=== PATIENT | female | born 1935 | race African-American/Black ===

== ENCOUNTER 2018-08-03 10:39 | Emergency (ER) | payer OTHER ==
--- NOTE | 2018-08-03 12:46 | RAD REPORT ---
EXAM DESCRIPTION: [facility] 12:37 pm CLINICAL HISTORY: left leg pain and swelling. COMPARISON: None. FINDINGS: A Holland cyst is not seen Left common femoral, superficial femoral, popliteal and posterior tibial veins are compressible and demonstrate augmentation. Doppler demonstrates good flow. IMPRESSION: No evidence of deep venous thrombosis involving the left lower extremity.
--- NOTE | 2018-08-03 12:48 | EDPHYS ---
Physician Documentation [facility] Name: Alisa Pollock Age: 83 yrs Sex: Female : 1935 Arrival Date: 08/03/2018 Time: 10:42 Bed 4 Private MD: Ke Stratton F ED Physician Fracisco Tillman HPI: 08/03 11:44 This 83 yrs old Black Female presents to ER via Ambulatory with complaints of Leg rn Swelling. 11:44 The patient presents with pain. The complaints affect the posterior aspect of left rn knee. Onset: The symptoms/episode began/occurred yesterday. Modifying factors: The symptoms are alleviated by remaining still, the symptoms are aggravated by bending knee. Severity of symptoms: At their worst the symptoms were mild, in the emergency department the symptoms are unchanged. The patient has not experienced similar symptoms in the past. Reports pain behind left knee, began yesterday, no trauma, reports felt back of knee and felt swollen, no fever, no rash, no swelling of rest of legs. NO hx of dvt, no recent surgery, no long trips, no immobilization.. Historical: - Allergies: 10:57 Lisinopril; iw - Home Meds: 10:57 pravastatin 40 mg oral tab 2 tabs once daily [Active]; aspirin 81 mg Oral TbEC 1 tab iw once daily [Active]; amlodipine 10 mg tab 1 tab once daily [Active]; - PMHx: 10:57 High Cholesterol; Hypertension; iw - PSHx: 10:57 Tubal ligation; iw - Immunization history:: Adult Immunizations up to date. - Ebola Screening: : Patient negative for fever greater than or equal to 101.5 degrees Fahrenheit, and additional compatible Ebola Virus Disease symptoms Patient denies exposure to infectious person Patient denies travel to an Ebola-affected area in the 21 days before illness onset No symptoms or risks identified at this time. - Social history:: Smoking status: Patient/guardian denies using tobacco, Patient/guardian denies using alcohol. - Family history:: not pertinent. - Hospitalizations: : No recent hospitalization is reported. ROS: 11:44 Constitutional: Negative for fever, chills, and weight loss, Eyes: Negative for injury, rn pain, redness, and discharge, Neck: Negative for injury, pain, and swelling, Cardiovascular: Negative for chest pain, palpitations, and edema, Respiratory: Negative for shortness of breath, cough, wheezing, and pleuritic chest pain, Abdomen/GI: Negative for abdominal pain, nausea, vomiting, diarrhea, and constipation, MS/Extremity: + left leg pain and subjective swelling Skin: Negative for injury, rash, and discoloration, Neuro: Negative for headache, weakness, numbness, tingling, and seizure. Exam: 11:44 Constitutional: This is a well developed, well nourished patient who is awake, alert, rn and in no acute distress. Head/Face: Normocephalic, atraumatic. Eyes: Pupils equal round and reactive to light, extra-ocular motions intact. Lids and lashes normal. Conjunctiva and sclera are non-icteric and not injected. Cornea within normal limits. Periorbital areas with no swelling, redness, or edema. ENT: MMM Respiratory: No increased work of breathing, no retractions or nasal flaring. Skin: Warm, dry with normal turgor. Normal color with no rashes, no lesions, and no evidence of cellulitis. MS/ Extremity: Pulses equal, no cyanosis. Neurovascular intact. Full, normal range of motion. Equal circumference. Neuro: Awake and alert, GCS 15, oriented to person, place, time, and situation. Cranial nerves II-XII grossly intact. Motor strength 5/5 in all extremities. Sensory grossly intact. Cerebellar exam normal. Vital Signs: 10:57 BP 119 / 87; Pulse 90; Resp 16; Temp 98.3; Pulse Ox 100% on R/A; iw 12:10 BP 121 / 74; Pulse 83; Resp 18; Pulse Ox 100% on R/A; hj 12:50 BP 122 / 70; Pulse 82; Resp 18; Pulse Ox 100% on R/A; hj MDM: 10:48 Patient medically screened. rn 12:44 Differential diagnosis: tendonitis, bursitis, DVT, arthritis. Data reviewed: vital rn signs, nurses notes, radiologic studies, doppler, and as a result, I will discharge patient. Counseling: I had a detailed discussion with the patient and/or guardian regarding: the historical points, exam findings, and any diagnostic results supporting the discharge/admit diagnosis, radiology results, the need for outpatient follow up, to return to the emergency department if symptoms worsen or persist or if there are any questions or concerns that arise at home. Special discussion: I discussed with the patient/guardian in detail that at this point there is no indication for admission to the hospital. It is understood, however, that if the symptoms persist or worsen the patient needs to return immediately for re-evaluation. ED course: U/S report negative for DVT, neg for fluid collection or mass. 08/03 11:05 Order name: Extremity [facility] US; Complete Time: 12:48 rn Administered Medications: No medications were administered Disposition: 08/03/18 12:48 Discharged to Home. Impression: Pain in left leg, Osteoarthritis, unspecified site. - Condition is Stable. - Discharge Instructions: Arthritis, Bursitis, Musculoskeletal Pain, Pain Without a Known Cause. - Medication Reconciliation Form, Thank You Letter, Antibiotic Education, Prescription Opioid Use form. - Follow up: Private Physician; When: As needed; Reason: Recheck today's complaints, Re-evaluation by your physician. - Problem is new. - Symptoms have improved. Signatures: Dispatcher [employer] EDIL Sarah Schwartz RN RN iw Nieto, Roman, MD MD rn Joaquin, Henry, RN RN hj Corrections: (The following items were deleted from the chart) 13:00 12:48 08/03/2018 12:48 Discharged to Home. Impression: Pain in left leg; hj Osteoarthritis, unspecified site. Condition is Stable. Forms are Medication Reconciliation Form, Thank You Letter, Antibiotic Education, Prescription Opioid Use. Follow up: Private Physician; When: As needed; Reason: Recheck today's complaints, Re-evaluation by your physician. Problem is new. Symptoms have improved. rn
--- NOTE | 2018-08-03 12:48 | ER ---
Nurse's Notes [facility] Name: Alisa Pollock Age: 83 yrs Sex: Female : 1935 Arrival Date: 08/03/2018 Time: 10:42 Bed 4 Private MD: Ke Stratton F Diagnosis: Pain in left leg;Osteoarthritis, unspecified site Presentation: 08/03 10:54 Presenting complaint: Patient states: feels like her left leg is swollen, also reports iw mild pain to left calf when bending leg this morning. Transition of care: patient was not received from another setting of care. Onset of symptoms was July 2018. Risk Assessment: Do you want to hurt yourself or someone else? Patient reports no desire to harm self or others. Initial Sepsis Screen: Does the patient meet any 2 criteria? No. Patient's initial sepsis screen is negative. Does the patient have a suspected source of infection? No. Patient's initial sepsis screen is negative. Care prior to arrival: None. 10:54 Method Of Arrival: Ambulatory iw 10:54 Acuity: BULL 3 iw Triage Assessment: 11:00 General: Appears in no apparent distress. uncomfortable, Behavior is calm, cooperative, hj appropriate for age. Pain: Complains of pain in left leg. Historical: - Allergies: 10:57 Lisinopril; iw - Home Meds: 10:57 pravastatin 40 mg oral tab 2 tabs once daily [Active]; aspirin 81 mg Oral TbEC 1 tab iw once daily [Active]; amlodipine 10 mg tab 1 tab once daily [Active]; - PMHx: 10:57 High Cholesterol; Hypertension; iw - PSHx: 10:57 Tubal ligation; iw - Immunization history:: Adult Immunizations up to date. - Ebola Screening: : Patient negative for fever greater than or equal to 101.5 degrees Fahrenheit, and additional compatible Ebola Virus Disease symptoms Patient denies exposure to infectious person Patient denies travel to an Ebola-affected area in the 21 days before illness onset No symptoms or risks identified at this time. - Social history:: Smoking status: Patient/guardian denies using tobacco, Patient/guardian denies using alcohol. - Family history:: not pertinent. - Hospitalizations: : No recent hospitalization is reported. Screenin:00 Abuse screen: Denies threats or abuse. Denies injuries from another. Nutritional hj screening: No deficits noted. Tuberculosis screening: No symptoms or risk factors identified. Fall Risk None identified. Assessment: 10:57 General: Appears in no apparent distress. uncomfortable, Behavior is calm, cooperative, hj appropriate for age. Pain: Complains of pain in left leg. Neuro: Level of Consciousness is awake, alert, obeys commands, Oriented to person, place, time, situation, Appropriate for age. Cardiovascular: Capillary refill < 3 seconds Patient's skin is warm and dry. Respiratory: Airway is patent Respiratory effort is even, unlabored, Respiratory pattern is regular, symmetrical. GI: No signs and/or symptoms were reported involving the gastrointestinal system. : No signs and/or symptoms were reported regarding the genitourinary system. EENT: No signs and/or symptoms were reported regarding the EENT system. Derm: No signs and/or symptoms reported regarding the dermatologic system. Musculoskeletal: Reports pain in left leg. 12:09 Reassessment: Patient and/or family updated on plan of care and expected duration. Pain hj level reassessed. Patient is alert, oriented x 3, equal unlabored respirations, skin warm/dry/pink. family in room awaiting US;. 12:50 Reassessment: Patient and/or family updated on plan of care and expected duration. Pain hj level reassessed. Patient is alert, oriented x 3, equal unlabored respirations, skin warm/dry/pink. for D/C;. Vital Signs: 10:57 BP 119 / 87; Pulse 90; Resp 16; Temp 98.3; Pulse Ox 100% on R/A; iw 12:10 BP 121 / 74; Pulse 83; Resp 18; Pulse Ox 100% on R/A; hj 12:50 BP 122 / 70; Pulse 82; Resp 18; Pulse Ox 100% on R/A; hj ED Course: 10:42 Patient arrived in ED. as 10:42 Ke Stratton MD is Private Physician. as 10:48 Fracisco Tillman MD is Attending Physician. rn 10:52 Eduardo Lino RN is Primary Nurse. hj 10:55 Triage completed. iw 10:57 Arm band placed on. iw 11:00 Patient has correct armband on for positive identification. Placed in gown. Bed in low hj position. Call light in reach. Side rails up X 1. 12:19 Ultrasound completed. Patient tolerated well. sg3 12:19 Radiology exam delayed due to u/s Outpatient exam being done during this time. sg3 12:37 Extremity [facility] US In Process Unspecified. EDMS 12:59 No provider procedures requiring assistance completed. Patient did not have IV access hj during this emergency room visit. Administered Medications: No medications were administered Outcome: 12:48 Discharge ordered by MD. rn 12:59 Discharged to home via wheelchair, with family. hj 12:59 Condition: stable 12:59 Discharge instructions given to patient, family, Instructed on discharge instructions, follow up and referral plans. Demonstrated understanding of instructions, follow-up care. 13:00 Patient left the ED. hj Signatures: Dispatcher [employer] EDMS Roxann Mak Irene, RN Fracisco Ramirez MD MD rn Joaquin, Henry, RN RN hj Godinez, Sarah sg3
== END 2018-08-03 13:00 | disposition home or self-care (01) ==
LOC: ER 10:39
DX: M25.562 Pain in left knee (principal); M19.90 Unspecified osteoarthritis, unspecified site; I10 Essential (primary) hypertension; E78.00 Pure hypercholesterolemia, unspecified; Z79.82 Long term (current) use of aspirin
CPT/HCPCS: 93971; 99283